=== PATIENT | male | born 1960 | race Caucasian/White ===

== ENCOUNTER → 2018-07-23 | Day surgery (SDC) | payer BC ==
[~2018-07-23] MED LIST: Glycopyrrolate 0.2 MG/ML 2 ML SDV ONE; Midazolam 1 MG/ML 2 ML SDV ONE; Propofol 200 MG/20 ML SDV ONE; Sodium Chloride 0.9% 1,000 ML IV SCH; fentaNYL 100 MCG/2 ML SDV ONE
--- NOTE | 2018-07-23 22:59 | EDM.PDOC ---
ED HPI GENERAL MEDICAL PROBLEM - General Chief Complaint: Gastrointestinal Problem Stated Complaint: FOOD STUCK IN THROAT Time Seen by Provider: 07/23/18 22:45 Source of Information: Reports: Patient, RN History Limitations: Reports: No Limitations - History of Present Illness INITIAL COMMENTS - FREE TEXT/NARRATIVE: 58 yo male presents with steak stuck in his distal esophagus since about 6 pm tonight. Not able to keep anything down since. Has had this happen in the past. Had EGD with dilatation within the past year. 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: Other (see below) (tried heat, [employer]...) Upper Epigastric Pain Score (Numeric/FACES): 6 - Related Data Allergies Allergy/AdvReac Type Severity Reaction Status Date / Time No Known Allergies Allergy Verified 07/23/18 22:36 Home Meds: Home Meds Aspirin/Calcium Carbonate/Mag [Aspirin Buffered 325 mg Tab] 325 mg PO DAILY [History] Rosuvastatin [Crestor] 20 mg PO DAILY 10/01/15 [History] Past Medical History HEENT History: Reports: Impaired Vision Cardiovascular History: Reports: [place] Gastrointestinal History: Reports: Other (See Below) Other Gastrointestinal History: dilatation of esophagus Immunologic History: Reports: HIV Oncologic (Cancer) History: Reports: Basal Cell Carcinoma - Infectious Disease History Infectious Disease History: Reports: HIV-Human Immunodeficiency Virus - Past Surgical History Cardiovascular Surgical History: Reports: Coronary Artery Stent Dermatological Surgical History: Reports: Skin Biopsy Social & Family History - Tobacco Use Smoking Status *Q: Never Smoker Second Hand Smoke Exposure: No - Caffeine Use Caffeine Use: Reports: Coffee - Alcohol Use Days Per Week of Alcohol Use: 0 - Recreational Drug Use Recreational Drug Use: No ED ROS GENERAL - Review of Systems Review Of Systems: See Below Constitutional: Reports: No Symptoms HEENT: Reports: No Symptoms Respiratory: Reports: No Symptoms Cardiovascular: Reports: No Symptoms GI/Abdominal: Reports: Abdominal Pain (epigastric pressure), Vomiting (once when he continued eating after the initial obstruction.). Denies: Black Stool, Bloody Stool, Constipation, Diarrhea, Decreased Appetite, Distension, Hematemesis, Hematochezia, Nausea : Reports: No Symptoms Skin: Reports: No Symptoms Neurological: Reports: No Symptoms ED EXAM, GI/ABD - Physical Exam Exam: See Below Exam Limited By: No Limitations General Appearance: Alert, WD/WN, No Apparent Distress Eyes: Bilateral: Normal Appearance Ears: Hearing Grossly Normal Nose: Normal Inspection, No Blood Throat/Mouth: Normal Inspection, Normal Lips, No Airway Compromise Head: Atraumatic, Normocephalic Neck: Normal Inspection Respiratory/Chest: No Respiratory Distress, Lungs Clear, Normal Breath Sounds, No Accessory Muscle Use Cardiovascular: Regular Rate, Rhythm, No Edema GI/Abdominal Exam: Soft, Non-Tender Neurological: Alert, Oriented, CN II-XII Intact, Normal Cognition, No Motor/ Sensory Deficits Psychiatric: Normal Affect, Normal Mood Skin Exam: Warm, Dry, Intact, Normal Color, No Rash Course - Vital Signs Text/Narrative:: Dr. Mar called @ 2258h, he came in and took Ry to the OR for removal of a piece of steak. Will discharge when awake and taking fluids. Last Recorded V/S: Last Vital Signs Temp 36.4 C 07/24/18 01:04 Pulse 71 07/24/18 01:04 Resp 16 07/24/18 01:04 BP 96/63 07/24/18 01:04 Pulse Ox 95 07/24/18 01:04 - Orders/Labs/Meds Orders: Active Orders 24 hr Category Date Time Status Sodium Chloride 0.9% [Normal Saline] 1,000 ml Med 07/23/18 23:00 Active IV ASDIRECTED Medication Orders Sodium Chloride (Normal Saline) 1,000 mls @ 125 mls/hr IV ASDIRECTED DESI Last Admin: 07/23/18 23:13 Dose: 125 mls/hr Labs: Laboratory Tests 07/23/18 Range/Units 22:55 Sodium 140 (140-148) mmol/L Potassium 4.2 (3.6-5.2) mmol/L Chloride 102 (100-108) mmol/L Carbon Dioxide 28 (21-32) mmol/L Anion Gap 9.9 (5.0-14.0) mmol/L BUN 16 (7-18) mg/dL Creatinine 1.3 (0.8-1.3) mg/dL Est Cr Clr Drug Dosing 66.77 mL/min Estimated GFR (MDRD) 57 L (>60) Glucose 112 H (74-106) mg/dL Calcium 9.3 (8.5-10.1) mg/dL Meds: Medications Generic Name Dose Route Start Last Admin Trade Name Leo PRN Reason Stop Dose Admin Sodium Chloride 1,000 mls @ 125 mls/hr 07/23/18 23:00 07/23/18 23:13 Normal Saline IV 125 mls/hr ASDIRECTED DESI Administration Discontinued Medications Generic Name Dose Route Start Last Admin Trade Name Leo PRN Reason Stop Dose Admin Fentanyl Confirm 07/23/18 23:29 Sublimaze Administered 07/23/18 23:30 Dose 100 mcg .ROUTE .STK-MED ONE Glycopyrrolate Confirm 07/23/18 23:53 Glycopyrrolate Administered 07/23/18 23:54 Dose 0.4 mg .ROUTE .STK-MED ONE Midazolam HCl Confirm 07/23/18 23:29 Versed 1 Mg/Ml Administered 07/23/18 23:30 Dose 2 mg .ROUTE .STK-MED ONE Propofol Confirm 07/23/18 23:29 Diprivan 20 Ml Administered 07/23/18 23:30 Dose 200 mg .ROUTE .STK-MED ONE Propofol Confirm 07/23/18 23:53 Diprivan 20 Ml Administered 07/23/18 23:54 Dose 200 mg .ROUTE .STK-MED ONE Departure - Departure Time of Disposition: 01:45 Disposition: Home, Self-Care 01 Condition: Good Clinical Impression: Esophageal obstruction due to food impaction - Discharge Information *PRESCRIPTION DRUG MONITORING PROGRAM REVIEWED*: No *COPY OF PRESCRIPTION DRUG MONITORING REPORT IN PATIENT REINALDO: No - My Orders Last 24 Hours: My Active Orders 07/23/18 23:00 Sodium Chloride 0.9% [Normal Saline] 1,000 ml IV ASDIRECTED - Assessment/Plan Last 24 Hours: My Active Orders 07/23/18 23:00 Sodium Chloride 0.9% [Normal Saline] 1,000 ml IV ASDIRECTED
[2018-07-24 01:43] VITALS: BP 114/80
--- NOTE | 2018-07-24 08:17 | OR ---
DATE OF PROCEDURE: 07/23/2018 SURGEON: Ry Mar MD PROCEDURE PERFORMED: EGD. FINDINGS: Removal of foreign body, food material. COMPLICATIONS: None. GETTER WELDER: None. ANESTHESIA: MAC. RISKS: Risks, benefits, alternatives, and limitations including, but not limited to infection, bleeding, and perforation were explained to the patient, who wished to proceed. We also discussed the aspiration and the risks, along with some possibility of general intubation to protect the airway. The patient understands these risks and wishes to proceed. PROCEDURE IN DETAIL: The patient was placed in left lateral decubitus position. The patient was having nausea and vomiting prior to induction with MAC anesthetic. This continued during the procedure. However, suction irrigation techniques were used and the patient had a very limited aspiration once the procedure was commenced. The scope was introduced into the esophagus, and then the distal esophagus foreign food material was noted. This was able to be pushed into the esophagus without any difficulty. At no time was the scope introduced blindly or advanced with any pressure blindly. There was other food material noted in the stomach. The procedure was then terminated at this point due to the patient's potential risk for aspiration. The patient tolerated the procedure well. On gross cursory exam, no masses or abnormalities were noted. However, this was limited in the scope evaluation, due to maximizing the patient's safety. The patient tolerated the procedure well. Ry Mar MD /[id number]
== END ==
LOC: JP.ED 22:21 → JP.SDS 23:07
PROVIDERS: ATTEND Surgery
DX: T18.128A Food in esophagus causing other injury, initial encounter (principal); Z86.79 Personal history of other diseases of the circulatory system; Z85.828 Personal history of other malignant neoplasm of skin; Z21 Asymptomatic human immunodeficiency virus [HIV] infection status; Z79.82 Long term (current) use of aspirin; Z79.899 Other long term (current) drug therapy
CPT/HCPCS: 36415; 43247; 80048; 99283; J2250; J2704; J3010; J3490; J7030